=== PATIENT | female | born 1990 | race Caucasian/White ===

== ENCOUNTER 2016-05-25 04:23 | Emergency (ER) | payer OTHER ==
[~2016-05-25] VITALS: Ht 160 cm; Wt 70.5 kg
[~2016-05-25 04:23] MED LIST: BECL8.7A5 IH; OLAN10TA6 PO; PANT40TA25 PO
[2016-05-25 05:44] LABS: BASOPHILS % (AUTO) 0.2 % (0.0-2.0); EOSINOPHILS % (AUTO) 1.6 % (1.0-6.0); HEMATOCRIT 35.5 % (36-46); HEMOGLOBIN 11.7 g/dL (12.0-16.0); LYMPHOCYTES # (AUTO) 1.8 K/uL (1.0-4.8); LYMPHOCYTES % (AUTO) 18.6 % (22.0-44.0); MEAN CORPUSCULAR HEMOGLOBIN 25.9 pg (26.0-34.0); MEAN CORPUSCULAR HGB CONC 32.8 G/dL (31.0-37.0); MEAN CORPUSCULAR VOLUME 79 fL (80-100); MONOCYTES # (AUTO) 0.5 K/uL (0.1-1.0); NEUTROPHILS # (AUTO) 7.1 K/uL (1.8-7.7); NEUTROPHILS % (AUTO) 74.6 % (40.0-70.0); PLATELET COUNT (AUTO) 406 K/uL (150-450); RED CELL DISTRIBUTION WIDTH 16.7 % (11.5-14.5); WHITE BLOOD COUNT (AUTO) 9.5 K/uL (4.5-11.0)
[2016-05-25 05:52] LABS: ANION GAP 12 mmol/L (8-16); CALCIUM, TOTAL 8.7 mg/dL (8.8-10.5); CARBON DIOXIDE 25 mmol/L (22-29); CHLORIDE 101 mmol/L (98-107); CREATININE 0.49 mg/dL (0.60-1.30); GLOMERULAR FILTR. RATE CALC > 60 mL/min (>60); POTASSIUM 3.6 mmol/L (3.5-5.1); SODIUM SERUM 138 mmol/L (136-145); UREA NITROGEN, BLOOD 7 mg/dL (7-18)
[2016-05-25 05:57] LABS: ALANINE AMINOTRANSFERASE 21 U/L (12-78); ASPARTATE AMINOTRANSFERASE 14 U/L (15-37); BILIRUBIN,TOTAL 0.4 mg/dL (0.1-1.0); TOTAL PROTEIN, SERUM 7.9 g/dL (6.4-8.2)
[2016-05-25 06:11] LABS: APPEARANCE,URINE CLOUDY (CLEAR); GLUCOSE, URINE (UA) NEGATIVE (NEGATIVE); KETONES,URINE NEGATIVE (NEGATIVE); LEUKOCYTE ESTERASE ,URINE NEGATIVE (NEGATIVE); OCCULT BLOOD,URINE NEGATIVE (NEGATIVE); PROTEIN,URINE POS 1+ (NEGATIVE)
[2016-05-25 06:14] LABS: ADD UA MICROSCOPIC NO
[2016-05-25] MEDS ORDERED: SODIUM CHLORIDE 0.9% 1,000 ML IV ONE (07:00)
[2016-05-25] MEDS ORDERED: ONDANSETRON HCL 4 MG/2 ML VIAL IVP ONE (07:00)
[2016-05-25 09:41] VITALS: BP 120/83
== END 2016-05-25 10:00 | disposition home or self-care (01) ==
LOC: EMS 04:25
DX: R11.2 Nausea with vomiting, unspecified (principal); J45.909 Unspecified asthma, uncomplicated
CPT/HCPCS: 36415; 76700; 80053; 81003; 83690; 84703; 85025; 96361; 96374; 99285; J2405; J7030

== ENCOUNTER 2018-05-03 15:03 | Inpatient (IN) | payer MEDICAID ==
[~2018-05-03] VITALS: Ht 149.9 cm; Wt 82.2 kg
[2018-05-03 15:56] VITALS: BP 140/81
[2018-05-03] MEDS ORDERED: HYDR-4031 PO (16:43)
[2018-05-03] MEDS ORDERED: RISP2 PO (16:43)
[2018-05-03] MEDS ORDERED: CETI-170 PO (16:43)
[2018-05-03] MEDS ORDERED: LURA20TA PO (16:43)
[2018-05-03] MEDS ORDERED: PARO20TA24 PO (16:43)
[2018-05-03] MEDS ORDERED: PNEUMOCOCCAL VACCINE POLYVALENT 0.5 ML VIAL [PPSV23] IM ONE (17:00)
[2018-05-03 17:43] VITALS: BP 123/77
[2018-05-03] MEDS ORDERED: NICOTINE 14 MG/24 HOUR PATCH TD PRN (18:15)
[2018-05-03] MEDS ORDERED: LOPERAMIDE HCL 2 MG CAPSULE PO PRN (18:15)
[2018-05-03] MEDS ORDERED: CloNIDine HCL 0.1 MG TABLET PO PRN (18:15)
[2018-05-03] MEDS ORDERED: MAG HYDROX/AL HYDROX/SIMETH ES 30 ML SUSPENSION UDCUP PO PRN (18:15)
[2018-05-03] MEDS ORDERED: ACETAMINOPHEN 325 MG TABLET PO PRN (18:15)
[2018-05-03] MEDS ORDERED: MAGNESIUM HYDROXIDE SUSPENSION 30 ML UDCUP PO PRN (18:15)
[2018-05-03] MEDS ORDERED: ALBUTEROL SULFATE HFA 90 MCG/PUFF 8 GM INHALER IH PRN (18:15)
[2018-05-03] MEDS ORDERED: ONDANSETRON HCL 4 MG TABLET PO PRN (18:15)
[2018-05-03] MEDS ORDERED: PETROLATUM,WHITE 71 GM JELLY TP PRN (18:15)
[2018-05-03] MEDS ORDERED: GuaiFENesin/D-METHORPHAN [SUGAR-FREE] 200-20MG/10 ML SYRUP UDCUP PO PRN (18:15)
[2018-05-03] MEDS ORDERED: DOCUSATE SODIUM 100 MG CAPSULE PO PRN (18:15)
[2018-05-03] MEDS: ZOLPIDEM TARTRATE 10 MG TABLET PO PRN (20:14)
[2018-05-04 06:49] VITALS: BP 119/76
[2018-05-04 08:15] VITALS: BP 120/77
[2018-05-04 08:22] LABS: BASOPHILS % (AUTO) 0.4 % (0.0-2.0); EOSINOPHILS % (AUTO) 2.1 % (1.0-6.0); HEMATOCRIT 35.5 % (36-46); HEMOGLOBIN 12.1 g/dL (12.0-16.0); LYMPHOCYTES # (AUTO) 1.8 K/uL (1.0-4.8); LYMPHOCYTES % (AUTO) 26.9 % (22.0-44.0); MEAN CORPUSCULAR HEMOGLOBIN 26.8 pg (26.0-34.0); MEAN CORPUSCULAR VOLUME 79 fL (80-100); MONOCYTES # (AUTO) 0.4 K/uL (0.1-1.0); MONOCYTES % (AUTO) 6.5 % (2.0-9.0); NEUTROPHILS # (AUTO) 4.3 K/uL (1.8-7.7); NEUTROPHILS % (AUTO) 64.1 % (40.0-70.0); PLATELET COUNT (AUTO) 363 K/uL (150-450); RED BLOOD CELL COUNT(AUTO) 4.51 MIL/uL (4.00-5.20); RED CELL DISTRIBUTION WIDTH 15.4 % (11.5-14.5)
[2018-05-04 08:38] LABS: APPEARANCE,URINE CLEAR (CLEAR); BILIRUBIN,URINE NEGATIVE (NEGATIVE); GLUCOSE, URINE (UA) NEGATIVE (NEGATIVE); KETONES,URINE NEGATIVE (NEGATIVE); LEUKOCYTE ESTERASE ,URINE NEGATIVE (NEGATIVE); NITRATE,URINE NEGATIVE (NEGATIVE); OCCULT BLOOD,URINE NEGATIVE (NEGATIVE); PH,URINE 6.5 (5.0-8.0); PROTEIN,URINE NEGATIVE (NEGATIVE); UROBILINOGEN,URINE 0.2 mg/dL (<=1.0)
[2018-05-04 08:47] LABS: AMPHET/METH SCREEN,URINE NEGATIVE (NEGATIVE); BARBITURATE SCREEN, URINE NEGATIVE (NEGATIVE); BENZODIAZEPINES SCREEN,URINE NEGATIVE (NEGATIVE); CANNABINOID SCREEN,URINE NEGATIVE (NEGATIVE); COCAINE SCREEN,URINE NEGATIVE (NEGATIVE); METHADONE SCREEN, URINE NEGATIVE (NEGATIVE); OPIATE SCREEN,URINE NEGATIVE (NEGATIVE)
[2018-05-04 08:47] LABS: HEMOGLOBIN A1C 5.4 % (4.5-6.2)
[2018-05-04 08:48] LABS: PHENCYCLIDINE SCREEN,URINE NEGATIVE (NEGATIVE)
[2018-05-04 08:57] LABS: ALANINE AMINOTRANSFERASE 25 U/L (12-78); ALBUMIN 3.3 g/dL (3.4-5.0); ALKALINE PHOSPHATASE 108 U/L (46-116); ANION GAP 9 mmol/L (8-16); ASPARTATE AMINOTRANSFERASE 17 U/L (15-37); BILIRUBIN,TOTAL 0.2 mg/dL (0.1-1.0); CARBON DIOXIDE 28 mmol/L (22-29); CHLORIDE 102 mmol/L (98-107); CHOL/HDL RATIO 2.4 (3.9-5.7); CHOLESTEROL 144 mg/dL (131-200); CREATININE 0.66 mg/dL (0.60-1.30); FREE T4 (FREE THYROXINE) 0.86 ng/dL (0.76-1.46); GLOMERULAR FILTR. RATE CALC > 60 mL/min (>60); GLUCOSE,RANDOM 91 mg/dL (70-110); HCG,QUANTITATIVE < 1 mIU/mL (0-6); HDL CHOLESTEROL 59 mg/dL (40-60); LDL CHOL (CALC.) 73 mg/dL (0-130); POTASSIUM 4.3 mmol/L (3.5-5.1); SODIUM SERUM 139 mmol/L (136-145); THYROID STIMULATING HORMONE 1.88 uIU/mL (0.36-3.74); TOTAL PROTEIN, SERUM 7.1 g/dL (6.4-8.2); TRIGLYCERIDES 58 mg/dL (15-150); UREA NITROGEN, BLOOD 16 mg/dL (7-18)
[2018-05-04] MEDS: OLANZapine 10 MG RAPDIS TABLET PO SCH ×3 (10:00→17:00)
[2018-05-04] MEDS: PARoxetine HCL 20 MG TABLET PO SCH (10:18)
[2018-05-04] MEDS: LORazepam 2 MG TABLET PO PRN (10:18)
[2018-05-04 16:00] VITALS: BP 110/60
[2018-05-04] MEDS: IBUPROFEN 400 MG TABLET PO PRN (20:25)
[2018-05-04] MEDS: RisperiDONE 2 MG TABLET PO SCH (20:25)
[2018-05-05 05:42] VITALS: BP 120/76
[2018-05-05 08:10] VITALS: BP 116/57
[2018-05-05] MEDS: PARoxetine HCL 20 MG TABLET PO SCH (08:36)
[2018-05-05] MEDS: OLANZapine 10 MG RAPDIS TABLET PO SCH (08:37)
[2018-05-05] MEDS: PALIPERIDONE 3 MG ER TABLET PO SCH ×2 (12:57→17:03)
[2018-05-05 16:31] VITALS: BP 131/84
[2018-05-05] MEDS: RisperiDONE 2 MG TABLET PO SCH (20:15)
[2018-05-06 05:55] VITALS: BP 118/80
[2018-05-06 08:01] VITALS: BP 108/67
[2018-05-06] MEDS: PARoxetine HCL 20 MG TABLET PO SCH (08:25)
[2018-05-06] MEDS: PALIPERIDONE 3 MG ER TABLET PO SCH ×2 (08:26→17:23)
[2018-05-06] MEDS: RisperiDONE 2 MG TABLET PO SCH (20:27)
[2018-05-07 04:04] VITALS: BP 111/65
[2018-05-07 04:18] VITALS: BP 128/74
[2018-05-07] MEDS: PALIPERIDONE 3 MG ER TABLET PO SCH ×2 (08:12→16:23)
[2018-05-07] MEDS: PARoxetine HCL 20 MG TABLET PO SCH (08:12)
[2018-05-07 08:16] VITALS: BP 141/80
[2018-05-07 20:00] VITALS: BP 118/83
[2018-05-07] MEDS: LORazepam 2 MG TABLET PO PRN (20:00)
[2018-05-07] MEDS: IBUPROFEN 400 MG TABLET PO PRN (20:00)
[2018-05-07] MEDS: RisperiDONE 2 MG TABLET PO SCH (20:03)
[2018-05-08 05:24] VITALS: BP 120/77
[2018-05-08 08:17] VITALS: BP 113/64
[2018-05-08] MEDS: PARoxetine HCL 20 MG TABLET PO SCH (08:54)
[2018-05-08] MEDS: PALIPERIDONE 3 MG ER TABLET PO SCH ×2 (08:55→16:22)
[2018-05-08 16:11] VITALS: BP 146/93
[2018-05-08] MEDS: IBUPROFEN 400 MG TABLET PO PRN (19:33)
[2018-05-08] MEDS: ZOLPIDEM TARTRATE 10 MG TABLET PO PRN (21:11)
[2018-05-08] MEDS: RisperiDONE 2 MG TABLET PO SCH (21:11)
[2018-05-09] MEDS: LORazepam 2 MG TABLET PO PRN (04:43)
[2018-05-09 04:52] VITALS: BP 126/86
[2018-05-09 08:12] VITALS: BP 135/80
[2018-05-09] MEDS: PARoxetine HCL 20 MG TABLET PO SCH (08:28)
[2018-05-09] MEDS: PALIPERIDONE 3 MG ER TABLET PO SCH ×2 (08:28→16:19)
[2018-05-09] MEDS ORDERED: PALI1.5T2 PO (13:10)
[2018-05-12] MEDS ORDERED: OLAN10TA3 PO ×2 (16:42→16:43)
== END 2018-05-09 16:24 | disposition home or self-care (01) | DRG 750 ==
LOC: B3A 15:44
PROVIDERS: ADMIT Psychiatry & Neurology Child & Adolescent Psychiatry; ATTEND Psychiatry & Neurology Child & Adolescent Psychiatry
DX: F25.0 Schizoaffective disorder, bipolar type (principal); F29 Unspecified psychosis not due to a substance or known physiological condition; J45.909 Unspecified asthma, uncomplicated; K21.9 Gastro-esophageal reflux disease without esophagitis
CPT/HCPCS: 80307; 83036; 84439; 84443; 90686; 90732